=== PATIENT | male | born 1960 | race African-American/Black ===

== ENCOUNTER 2016-10-31 06:39 | Emergency (ER) ==
[2016-10-31 06:41] VITALS: BP 152/77; TEMP 97.7; BMI 26.9
[2016-10-31] MEDS ORDERED: FLUORETS OP STA (07:06)
[2016-10-31] MEDS ORDERED: TETRACAINE 0.5% OPTH SOL OP STA (07:06)
[2016-10-31] MEDS ORDERED: EYE-STREAM OP STA (07:06)
[2016-10-31] MEDS ORDERED: TETRACAINE 0.5% UNIT-DOSE OP ONE (07:11)
--- NOTE | 2016-10-31 07:11 | ED.PDOC ---
General ED Provider: Dr. SANDY ESPINAL Chief Complaint: Eye Problem Stated Complaint: Woke up with FB sensation, eye is red, watering Time Seen by Physician: 07:09 Mode of Arrival: Walk-In Information Source: Patient Nursing and Triage Documentation Reviewed and Agree: Yes EENT Complaint Exam - Eye Complaint/Exam Symptoms Are: Still present Timing: Constant Initial Severity: Moderate Current Severity: Moderate Location: Left Character: Reports: Foreign body sensation Aggravating: Reports: Blinking Alleviating: Reports: None Associated Signs and Symptoms: Reports: Clear drainage. Denies: Photophobia, Purulent drainage, Vision impairment, Fever, Swelling Eye Surgical History: Reports: None Penetrating Injury Risk Factors: Projectile (lawn mowing) Globe Rupture Risk Factors: None Acute Glaucoma Risk Factors: None Optic Artery Occlusion Risk Factors: None Visual Field: Normal Extraocular Movement: Normal Orbit Findings: Normal Globe Findings: Intact Lid Findings: Erythema Conjunctival Findings: Red Fluorescein Uptake: Yes Eye Picture: 1 - uptake Differential Diagnoses: Conjunctivitis, Corneal Abrasion, Foreign Body Review of Systems - Review Of Systems Constitutional: Reports: No symptoms Eyes: Reports: Foreign body sensation, Inflammation Ears, Nose, Mouth, Throat: Reports: No symptoms Respiratory: Reports: No symptoms Cardiac: Reports: No symptoms GI: Reports: No symptoms : Reports: No symptoms Musculoskeletal: Reports: No symptoms Skin: Reports: No symptoms Neurological: Reports: No symptoms Endocrine: Reports: No symptoms Hematologic/Lymphatic: Reports: No symptoms All Other Systems: Reviewed and Negative Past Medical History - Past Medical History Previously Healthy: Yes Endocrine: Reports: None Cardiovascular: Reports: None Respiratory: Reports: None Hematological: Reports: None Gastrointestinal: Reports: None Genitourinary: Reports: None Neuro/Psych: Reports: None Musculoskeletal: Reports: None Cancer: Reports: None - Surgical History General Surgical History: Reports: None - Family History Family History: Reports: None - Social History Smoking Status: Current some day smoker Smoking Cessation Counseling Time: > 10 min Hx Substance Use: No Alcohol Screening: Heavy Physical Exam - Physical Exam Appearance: Well-appearing, No pain distress, Well-nourished Eyes: AUSTYN, EOMI, Conjunctiva inflammed ENT: Ears normal, Nose normal, Oropharynx normal Respiratory: Airway patent, Breath sounds clear, Breath sounds equal, Respirations nonlabored Cardiovascular: RRR, Pulses normal, No rub, No murmur GI/: Soft, Nontender, No masses, Bowel sounds normal, No Organomegaly Musculoskeletal: Normal strength, ROM intact, No edema, No calf tenderness Skin: Warm, Dry, Normal color Neurological: Sensation intact, Motor intact, Reflexes intact, Cranial nerves intact, Alert, Oriented Psychiatric: Affect appropriate, Mood appropriate Critical Care Note - Critical Care Note Total Time (mins): 0 Course - Course Orders, Labs, Meds: Orders Category Date Time Status Balanced Salt Solution [Eye-Stream] MEDS 10/31/16 07:06 Stat 1 bottle OP ONCE STA Fluorescein Sodium [Fluorets] MEDS 10/31/16 07:06 Stat 1 strip OP ONCE STA Tetracaine HCl [Tetracaine 0.5% Opth Aisha] MEDS 10/31/16 07:06 Stat 2 drop OP ONCE STA Vital Signs: Temp Pulse Resp BP Pulse Ox 10/31/16 06:39 97.7 F 63 18 152/77 H 95 Departure - Departure Time of Disposition: 07:32 Disposition: HOME SELF-CARE Discharge Problem: Acute foreign body of left eye Qualifiers: Encounter type: initial encounter Qualifier Code: (T15.92XA) Foreign body on external eye, part unspecified, left eye, initial encounter Corneal abrasion, left Qualifiers: Encounter type: initial encounter Qualifier Code: (S05.02XA) Injury of conjunctiva and corneal abrasion without foreign body, left eye, initial encounter Instructions: Corneal Abrasion (ED) Condition: Stable Pt referred to PMD for follow-up: Yes (Eye doctor) Additional Instructions: rest cover the eye Tylenol prn Prescriptions: Ciprofloxacin Opth Aisha [Cipro 0.3% Opth Aisha] 2 drop OP Q4HR #1 vial Allergies/Adverse Reactions: Allergies No Known Allergies Allergy (Verified 10/31/16 06:42) Home Medications: Ambulatory Orders Ciprofloxacin Opth Aisha [Cipro 0.3% Opth Aisha] 2 drop OP Q4HR #1 vial 10/31/16 Disposition Discussed With: Patient, Family
== END 2016-10-31 07:45 | disposition home or self-care (01) ==
LOC: ED 06:39
DX: T15.92XA Foreign body on external eye, part unspecified, left eye, initial encounter (principal); S05.02XA Injury of conjunctiva and corneal abrasion without foreign body, left eye, initial encounter; F17.210 Nicotine dependence, cigarettes, uncomplicated
CPT/HCPCS: 99282

== ENCOUNTER 2016-11-03 12:10 | Outpatient (CLI) ==
[2016-11-03 13:19] LABS: BASOPHILS # (AUTO) 0.1 K/uL (0-0.2); BASOPHILS % (AUTO) 1.2 % (0.0-3.0); EOSINOPHILS # (AUTO) 0.1 K/ul (0.0-0.7); EOSINOPHILS % (AUTO) 2.5 % (0.0-7.0); HEMATOCRIT 43.5 % (42.0-52.0); HEMOGLOBIN 14.4 g/dl (14.0-18.0); IMMATURE GRANULOCYTE % (AUTO) 0.5 % (0.0-5.0); LYMPHOCYTES # (AUTO) 1.7 K/uL (0.60-3.4); MEAN CORPUSCULAR HEMOGLOBIN 29.3 pg (27.0-31.0); MEAN CORPUSCULAR HGB CONC 33.1 (31.8-35.4); MEAN CORPUSCULAR VOLUME 88.6 fl (80.0-94.0); MONOCYTES # (AUTO) 0.6 K/uL (0.4-2.0); MONOCYTES % (AUTO) 13.1 (0-10); NEUTROPHILS # (AUTO) 1.9 K/ul (2.0-6.9); NEUTROPHILS % (AUTO) 44.7; PLATELET COUNT 264 10^3/uL (140-440); RED BLOOD COUNT 4.91 10^6/ul (4.70-6.10); WHITE BLOOD COUNT 4.34 K/ul (4.2-10.2)
[2016-11-03 14:02] LABS: ALBUMIN 3.8 g/dL (3.4-5.0); ALBUMIN/GLOBULIN RATIO 0.95; ANION GAP 11.4; BILIRUBIN,TOTAL 1.72 mg/dL (0.00-1.20); BUN/CREATININE RATIO 10.25; CALCIUM 9.5 mg/dL (8.2-10.2); CHOL/HDL RATIO 3.2 (4.5-6.4); CREATININE 1.17 mg/dL (0.60-1.10); POTASSIUM 4.4 mmol/L (3.5-5.1); TOTAL PROTEIN 7.8 g/dL (6.4-8.2)
[2016-11-04 08:40] LABS: TESTOSTERONE 410 ng/dL (348-1197)
== END 2016-11-03 12:11 | disposition home or self-care (01) ==
LOC: LAB 12:10
PROVIDERS: ATTEND Emergency Medicine
DX: R53.83 Other fatigue (principal); N52.8 Other male erectile dysfunction; S05.02XD Injury of conjunctiva and corneal abrasion without foreign body, left eye, subsequent encounter
CPT/HCPCS: 36415; 80053; 80061; 83036; 84403; 84443; 85025

== ENCOUNTER 2016-11-12 06:56 | Outpatient (CLI) ==
--- NOTE | 2016-11-12 08:27 | US ---
Exam: Limited right upper quadrant abdominal sonogram Clinical indication: Elevated bilirubin. Findings: There are no prior studies available for comparison. The tail of pancreas was not well visualized due to overlying bowel gas. Otherwise, the pancreas singer s an unremarkable sonographic appearance, without sonographically detected focal abnormality. The IVC is patent. The liver has an unremarkable sonographic appearance, without sonographically detected focal abnorma lity. There is no intrahepatic biliary duct dilatation. There is normal antegrade portal venous fl ow. The gallbladder is unremarkable. The common bile duct measures 0.4 cm in diameter. There is no ascites. The right kidney measures 9.3 x 4.3 x 3.8 cm in diameter. The right renal cortex measures 1.1 cm in thickness. There are no sonographically detected focal right renal abnormalities. There is no rig ht-sided hydronephrosis or renal calculi.. Impression: Unremarkable right upper quadrant abdominal sonogram.
== END 2016-11-12 06:57 | disposition home or self-care (01) ==
LOC: RAD 06:56
PROVIDERS: ATTEND Emergency Medicine
DX: R17 Unspecified jaundice (principal)

== ENCOUNTER 2018-03-30 15:21 | Emergency (ER) ==
[2018-03-30 15:25] VITALS: BP 155/70; TEMP 98.7; BMI 25.9
[2018-03-30] MEDS ORDERED: TORADOL IM STA (16:35)
--- NOTE | 2018-03-30 16:36 | ED.PDOC ---
General ED Provider: Dr. HANY CANALES Chief Complaint: Back Pain Stated Complaint: Low Back Pain. Unaware of injury.Denies radiculating pain Time Seen by Physician: 15:40 Mode of Arrival: Walk-In Information Source: Patient Exam Limitations: No limitations [facility] T[facility] Documentation Reviewed and Agree: Yes Does patient meet sepsis criteria?: No System Inflammatory Response Syndrome: Not Applicable Sepsis Protocol: For patient's 13 years and over: Temp is 96.8 and below OR 101 and greater Pulse >90 BPM Resp >20/minute Acutely Altered Mental Status Are patient's symptoms suggestive of a new infection, such as: -Pneumonia -Skin, Soft Tissue -Endocarditis -UTI -Bone, Joint Infection -Implantable Device -Acute Abdominal Infection -Wound Infection -Meningitis -Blood Stream Catheter Infection -Unknown Musculoskeletal Complaint Exam - Back Pain Complaint/Exam Mechanism of Injury: Reports: No known trauma Symptoms Are: Still present Timing: Intermittent Episodes Lasting: Hours Initial Severity: Moderate Current Severity: Moderate Location: Reports: Discrete Character: Reports: Aching, Stiffness, Burning Aggravating: Reports: Movements, Bending Alleviating: Reports: Rest Associated Signs and Symptoms: Denies: Swelling, Redness, Bruising, Fever, Weakness, Numbness, Tingling, Abdominal pain, Flank pain, Bladder incontinence, Bowel incontinence, Weight loss, Pain with weight bearing TAD Risk Factors: Reports: None AAA Risk Factors: Reports: None Cauda Equina Risk Factors: Reports: None Epidural Abcess Risk Factors: Reports: None Review of Systems - Review Of Systems Constitutional: Reports: No symptoms Eyes: Reports: No symptoms Ears, Nose, Mouth, Throat: Reports: No symptoms Respiratory: Reports: No symptoms Cardiac: Reports: No symptoms GI: Reports: No symptoms : Reports: No symptoms Musculoskeletal: Reports: Back pain, Muscle stiffness Skin: Reports: No symptoms Neurological: Reports: No symptoms Endocrine: Reports: No symptoms Hematologic/Lymphatic: Reports: No symptoms All Other Systems: Reviewed and Negative Past Medical History - Past Medical History Previously Healthy: Yes Endocrine: Reports: None Cardiovascular: Reports: None Respiratory: Reports: None Hematological: Reports: None Gastrointestinal: Reports: None Genitourinary: Reports: None Neuro/Psych: Reports: None Musculoskeletal: Reports: None Cancer: Reports: None - Surgical History General Surgical History: Reports: None - Family History Family History: Reports: None - Social History Smoking Status: Current some day smoker Hx Substance Use: No Alcohol Screening: Heavy Physical Exam - Physical Exam Appearance: Well-appearing, No pain distress, Well-nourished Eyes: AUSTYN, EOMI, Conjunctiva clear ENT: Ears normal, Nose normal, Oropharynx normal Respiratory: Airway patent, Breath sounds clear, Breath sounds equal, Respirations nonlabored Cardiovascular: RRR, Pulses normal, No rub, No murmur GI/: Soft, Nontender, No masses, Bowel sounds normal, No Organomegaly Musculoskeletal: Normal strength, ROM intact, No edema, No calf tenderness Skin: Warm, Dry, Normal color Neurological: Sensation intact, Motor intact, Reflexes intact, Cranial nerves intact, Alert, Oriented Psychiatric: Affect appropriate, Mood appropriate Interpretation - Radiology Interpretation Radiology Interpretation By: Radiologist Radiology Results: No acute changes Exam Interpreted: CT Scan (OA) Critical Care Note - Critical Care Note Total Time (mins): 0 Course - Course Orders, Labs, Meds: Orders Category Date Time Status Ketorolac Tromethamine [Toradol] MEDS 03/30/18 16:35 Discontinued 30 mg IM ONCE STA CT LUMBAR SPINE W/O CONTRAST Stat RADS 03/30/18 16:33 Completed Medications Discontinued Medications Generic Name Dose Route Start Last Admin Trade Name Freq PRN Reason Stop Dose Admin Ketorolac Tromethamine 30 mg 03/30/18 16:35 03/30/18 16:51 Toradol IM 03/30/18 16:36 30 mg ONCE STA Administration Vital Signs: Temp Pulse Resp BP Pulse Ox 03/30/18 15:21 98.7 F 62 20 155/70 H 98 Departure - Departure Time of Disposition: 17:40 Disposition: HOME SELF-CARE Discharge Problem: Lumbar spine pain, Degenerative lumbar disc Instructions: Low Back Strain (ED), Degenerative Disc Disease (ED) Condition: Good Pt referred to PMD for follow-up: Yes IPMP verified?: No Additional Instructions: Take meds as directed Follow up with pcp Prescriptions: Cyclobenzaprine HCl [Flexeril] 5 mg PO BID #20 tablet Ketorolac Tromethamine [Toradol] 10 mg PO Q6H PRN #20 tablet PRN Reason: pain Allergies/Adverse Reactions: Allergies No Known Allergies Allergy (Verified 03/30/18 15:25) Home Medications: Ambulatory Orders Cyclobenzaprine HCl [Flexeril] 5 mg PO BID #20 tablet 03/30/18 Ketorolac Tromethamine [Toradol] 10 mg PO Q6H PRN #20 tablet 03/30/18
--- NOTE | 2018-03-30 17:03 | CT ---
EXAM: CT of the lumbar spine without contrast History: Lower back pain. Comparison: None available. Technique: Multiplanar CT images through the lumbar spine were obtained without the administration o f IV contrast Findings: No acute fracture or subluxation of the lumbar spine. Mild to moderate multilevel disc space narrowi ng with a few prominent osteophytes. T12-L1: No significant bony central canal stenosis or bony neural foraminal narrowing. L1-L2: No significant bony central canal stenosis or bony neural foraminal narrowing. L2-L3: Small disc bulge effacing anterior thecal sac with no significant bony central canal stenosis or bony neural foraminal narrowing. L3-L4: Small to modest paracentral disc protrusion effacing anterior thecal sac with mild central ca nal stenosis. No significant bony neural foraminal narrowing. L4-L5: Small to modest right paracentral disc protrusion effacing anterior thecal sac with mild cent ral canal stenosis. Mild to moderate bilateral bony neural foraminal narrowing secondary to ligament ous and facet hypertrophy. L5-S1: No significant disc bulge or central canal stenosis. No significant bony neural foraminal trang rowing. Impression: 1. No acute osseous abnormality of the lumbar spine. 2. Degenerative changes with level by level analysis as detailed above.
== END 2018-03-30 17:57 | disposition home or self-care (01) ==
LOC: ED 15:21
DX: M54.5 Low back pain (principal); M51.36 Other intervertebral disc degeneration, lumbar region; F17.210 Nicotine dependence, cigarettes, uncomplicated
CPT/HCPCS: 96372; 99282